=== PATIENT | male | born 1995 | race Caucasian/White ===

== ENCOUNTER 2021-05-09 13:10 | Emergency (ER) | payer OTHER, SELFPAY ==
[2021-05-09 13:20] VITALS: BP 134/87; PULSE 77; RESP 14; TEMP 36.6; O2SAT 97; BMI 30.3
[2021-05-09] MEDS: TET,DIPH,PERTUSS(ACELL),VAC/PF 0.5 ML SYRINGE IM (16:39)
[2021-05-09 17:48] VITALS: BP 134/98; PULSE 88; RESP 16; TEMP 36.9; O2SAT 96
[2021-05-09 19:10] VITALS: BP 134/83; PULSE 77; RESP 16; O2SAT 97
--- NOTE | 2021-05-10 06:38 | ED.WOUNDLAC ---
HPI - Wound/Laceration General Chief Complaint: Wound/Laceration Stated Complaint: Laceration to Right Hand Time Seen by Provider: 05/09/21 18:06 Source: patient Mode of arrival: Ambulatory Limitations: no limitations History of Present Illness HPI narrative: Otherwise healthy 25-year-old gentleman presents after sustaining a cut to the palmar surface of his right hand. He was using supervisor mattress and boxsprings it slipped and he has a 5 cm laceration to the palmar surface not involving any tendons. Related Data Previous Rx's Medication Instructions Recorded cephalexin 500 mg capsule 500 mg PO TID 5 Days #15 cap 05/09/21 Allergies Allergy/AdvReac Type Severity Reaction Status Date / Time No Known Drug Allergies Allergy Verified 05/09/21 13:20 Review of Systems Review of Systems Narrative: Pertinent positive and negative findings as per HPI Remainder of review of systems is otherwise unremarkable for Constitutional: Fevers, chills, weakness ENT: No sore throat, neck pain, ear pain CV: Chest pain, palpitations, Respiratory: Cough, wheeze, dyspnea GI: Nausea, vomiting, diarrhea, Patient History Social History Smoking Status: Never smoker Smoking Status: Never smoker alcohol intake frequency: holidays/special occasions only Substance Use Type: does not use Exam Narrative Exam Narrative: General: Alert appropriate in no acute distress Respiratory: Able to speak in full sentences, no obvious respiratory distress Skin: No obvious rashes, warm and dry Neurologic: Grossly intact no obvious asymmetries or abnormalities Psych: appropriate insight and affect, cooperative Extremity: 5 cm laceration to the palmar surface right hand along diagnosed creases of the palm. He is completely neurovascularly intact and tendon sheaths are not uncovered no tendon involvement Initial Vital Signs Initial Vital Signs: Vital Signs Temperature 97.8 F 05/09/21 13:20 Pulse Rate 77 05/09/21 13:20 Respiratory Rate 14 05/09/21 13:20 Blood Pressure 134/87 05/09/21 13:20 Pulse Oximetry 97 05/09/21 13:20 Procedures Laceration Repair Right hand: Site: hand Side (If applicable): right Size (cm): 5 Description: linear Depth: simple, single layer Local Anesthetic: lidocaine 1% and with bicarb Amount of anesthesia used (mL): 10 Pre-repair: wound explored and irrigated extensively Skin layer closed with: nylon Size (cm): 4-0 Number of sutures: 1 Technique: running Course Orders Ordered: Discontinued Medications Diphtheria/Tetanus/Acell Pertussis (Tet,Diph,Pertuss(Acell),Vac/Pf 0.5 Ml Syringe) 0.5 ml IM .ONCE ONE Stop: 05/09/21 16:29 Last Admin: 05/09/21 16:39 Dose: 0.5 ml Documented by: CHIDI Lidocaine/Sodium Bicarbonate (Lido 1%/Sod Bicarb 8.4% (10ml) 10 Ml Syringe) 10 ml INJ NOW ONE Stop: 05/09/21 18:17 MDM - Wound/Laceration MDM Narrative Medical decision making narrative: 25-year-old young man with a laceration palmar surface of the right hand that is repaired with a running 4-0 nylon suture. Because of the location his placed on 5 days of Keflex. Tetanus status is updated today. Questions are answered. L&I forms are completed. Patient is safe for home discharge Discharge Plan Departure Patient Disposition: Home Clinical Impression: Laceration Instructions: DI for Laceration Repair Activity Restrictions/Additional Instructions: Thank you for coming in today That cut is in a difficult place, involving the entire palmar surface of your hand. This stitches need to come out on or about May 16 Please do keep the dressing on this at all times, it is going to be annoying to say the least. Hands are at very high risk for infection so I am going to have you complete 5 days of Keflex. Using 400 mg of ibuprofen (2 [id number] pills) and 1 Tylenol every 6 hours can be very helpful in controlling pain. If you notice any signs of infection or worsening, you do need to return to the ER Using 400 mg of ibuprofen (2 evsa-lwv-vgvahom pills) and 1 Tylenol every 6 hours can be very helpful in controlling pain. I hope you have a wonderful wedding and I am glad that Moni seems to have picked a great terrie! Prescriptions: New cephalexin 500 mg capsule 500 mg PO TID 5 Days Qty: 15 RF: 0
== END 2021-05-09 19:10 | disposition home or self-care (01) ==
PROVIDERS: Emergency Provider Emergency Medicine
DX: S61.411A Laceration without foreign body of right hand, initial encounter (principal); W27.8XXA Contact with other nonpowered hand tool, initial encounter; Z23 Encounter for immunization; Y99.0 Civilian activity done for income or pay
CPT/HCPCS: 12002; 90471; 99283; 90715

== ENCOUNTER 2021-05-16 16:26 | Emergency (ER) | payer OTHER, SELFPAY ==
[2021-05-16 16:35] VITALS: BP 117/78; PULSE 102; RESP 13; TEMP 37.1; O2SAT 97; BMI 30.3
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
--- NOTE | 2021-05-16 17:18 | PC.NURSE ---
1 baseball stitch removed.
== END 2021-05-16 17:15 | disposition home or self-care (01) ==
PROVIDERS: Emergency Provider Emergency Medicine
DX: Z48.02 Encounter for removal of sutures (principal)
CPT/HCPCS: 99281

== ENCOUNTER 2023-12-31 09:17 | Emergency (ER) | payer OTHER, MEDICAID, SELFPAY ==
[2023-12-31 09:29] VITALS: TEMP 37.1; O2SAT 91
[2023-12-31 09:30] VITALS: BP 140/65; PULSE 101; O2SAT 95
[2023-12-31 09:33] VITALS: BP 140/65; PULSE 101; RESP 20; TEMP 37.1; O2SAT 96; BMI 33.9
--- NOTE | 2023-12-31 09:33 | DI.US.S_ITS ---
PROCEDURE: US SCROTUM INDICATIONS: INJURY TECHNIQUE: Real-time scanning was performed of the scrotum and testicles, with image documentation. Color and pulse Doppler interrogation was performed of both testicles. COMPARISON: None. FINDINGS: Right: Testicle is normal in size at 4.7 x 2.8 x 2.2 cm, and homogenous in echotexture. Epididymis is normal in overall size and morphology. No hydrocele or varicoceles. Overlying scrotal skin is normal in thickness. Left: Testicle is normal in size at 5.0 x 2.8 x 2.2 cm, and homogeneous in echotexture. Epididymis is normal in overall size and morphology. No hydrocele or varicoceles. Overlying scrotal skin is normal in thickness. Doppler: Color and pulse Doppler demonstrate normal and symmetric arterial flow in both testicles. Right inguinal region image with a high megahertz linear transducer with without Valsalva. No right inguinal hernia. IMPRESSION: 1. Unremarkable scrotal ultrasound. No torsion, mass, epididymitis, or orchitis. 2. No right inguinal hernia identified. Dictated by: Horace Sparks M.D. on 12/31/2023 at 11:46 Approved by: Horace Sparks M.D. on 12/31/2023 at 11:48
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
[2023-12-31] MEDS: ACETAMINOPHEN 325 MG TABLET PO (12:43)
[2023-12-31] MEDS: IBUPROFEN 400 MG TABLET PO (12:43)
[2023-12-31 12:45] VITALS: BP 136/60; PULSE 99; RESP 16; O2SAT 100
== END 2023-12-31 12:46 | disposition home or self-care (01) ==
PROVIDERS: Emergency Provider Emergency Medicine; PCP Family Medicine
DX: S30.22XA Contusion of scrotum and testes, initial encounter (principal); X58.XXXA Exposure to other specified factors, initial encounter
CPT/HCPCS: 76870; 93975; 99283

== ENCOUNTER 2024-01-04 20:38 | Emergency (ER) | payer OTHER, MEDICAID, SELFPAY ==
[2024-01-04 20:43] VITALS: BP 149/71; PULSE 92; RESP 16; TEMP 36.3; O2SAT 95; BMI 32.6
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
[2024-01-04 21:39] LABS: Bacteria Urine None Seen; Culture Indicated Urine Cult Not Indicated; RBC Urine 0-1/HPF (0-5/HPF); Squamous Epithelial Cell Urine 0-1 /HPF (0-5/HPF); Urine Volume 10mL (spun); WBC Urine None Seen (0-5/HPF)
== END 2024-01-04 21:51 | disposition home or self-care (01) ==
PROVIDERS: Emergency Provider Emergency Medicine; PCP Family Medicine
DX: R31.9 Hematuria, unspecified (principal); S30.22XD Contusion of scrotum and testes, subsequent encounter
CPT/HCPCS: 81003; 81015; 99282